=== PATIENT | female | born 1990 | race American Indian/Alaskan Native ===

== ENCOUNTER 2017-12-26 16:54 | Emergency (ER) | payer OTHER ==
[2017-12-26 16:59] VITALS: BP 141/83
[2017-12-26 17:31] LABS: Basophils # (Auto) 0.1 K/mm3 (0.0-0.1); Basophils % (Auto) 0.8 % (0.0-1.8); Eosinophils # (Auto) 0.1 K/mm3 (0.0-0.4); Eosinophils % (Auto) 0.9 % (0.0-4.3); Hematocrit 39.8 % (30.3-42.9); Hemoglobin 13.3 gm/dl (10.1-14.3); Lymphocytes # (Auto) 1.7 K/mm3 (1.2-5.4); Lymphocytes % (Auto) 21.1 % (13.4-35.0); Mean Corpuscular HGB Conc 34 % (30-34); Mean Corpuscular Hemoglobin 30 pg (28-32); Mean Corpuscular Volume 89 fl (79-97); Monocytes # (Auto) 0.7 K/mm3 (0.0-0.8); Monocytes % (Auto) 8.6 % (0.0-7.3); Platelet Count 334 K/mm3 (140-440); Red Blood Count 4.49 M/mm3 (3.65-5.03); Red Cell Distribution Width 15.8 % (13.2-15.2)
--- NOTE | 2017-12-26 20:18 | Ultrasound Report ---
FINAL REPORT PROCEDURE: US OB < = 14 WEEKS FETUS TECHNIQUE: Real-time transabdominal sonography of the uterus, placenta, amniotic fluid, adnexa, and fetus was performed with image documentation. Measurements were obtained to determine age/size. M-mode Doppler was used to document heartbeat. CPT 87831 HISTORY: 10wks, bleeding, cramping COMPARISON: No prior studies are available for comparison. FINDINGS: A single intrauterine gestation is identified. A small hypoechoic lesion measuring 1.9 x 1.2 x 2.0 centimeters is noted in the subchorionic region. A few small hypoechoic lesions measuring up to 2 centimeters are noted in the myometrium consistent with fibroids. CRL: 35mm, which corresponds to a gestational age of: 10weeks, 3 days. Yolk Sac: Normal. Embryonic Cardiac Activity: 173 beats per minute Gestational Sac: Normal. Right Ovary: 3.7 x 2.0 x 2.8 centimeters in size and appears normal Left Ovary: 2.4 x 1.3 x 2.7 centimeters in size and appears normal Estimated delivery date: 07/18/2018 IMPRESSION: 1. Single living intrauterine gestation at approximately 10 weeks and 3 days 2. EDC by US 07/18/2018. 3. Small hypoechoic lesion in the subchorionic region measuring 1.9 x 1.2 x 2.0 centimeters is consistent with subchorionic hemorrhage. 4. A few small hypoechoic lesions in the uterus are consistent with fibroids.
--- NOTE | 2017-12-26 20:18 | Ultrasound Report ---
FINAL REPORT PROCEDURE: US OB TRANSVAGINAL TECHNIQUE: Real-time transvaginal sonography of the uterus, placenta, amniotic fluid, adnexa, and fetus was performed with image documentation. Measurements were obtained to determine age/size. M-mode Doppler was used to document heartbeat. CPT 25738 HISTORY: 10wks, bleeding, cramping COMPARISON: No prior studies are available for comparison. FINDINGS: A single intrauterine gestation is identified. A small hypoechoic lesion measuring 1.9 x 1.2 x 2.0 centimeters is noted in the subchorionic region. A few small hypoechoic lesions measuring up to 2 centimeters are noted in the myometrium consistent with fibroids. CRL: 35mm, which corresponds to a gestational age of: 10weeks, 3 days. Yolk Sac: Normal. Embryonic Cardiac Activity: 173 beats per minute Gestational Sac: Normal. Right Ovary: 3.7 x 2.0 x 2.8 centimeters in size and appears normal Left Ovary: 2.4 x 1.3 x 2.7 centimeters in size and appears normal Estimated delivery date: 07/18/2018 IMPRESSION: 1. Single living intrauterine gestation at approximately 10 weeks and 3 days 2. EDC by US 07/18/2018. 3. Small hypoechoic lesion in the subchorionic region measuring 1.9 x 1.2 x 2.0 centimeters is consistent with subchorionic hemorrhage. 4. A few small hypoechoic lesions in the uterus are consistent with fibroids.
--- NOTE | 2017-12-26 21:37 | Emergency Department Report ---
ED HPI - General Chief complaint: Vaginal Bleeding Stated complaint: 10WEEKS PREG/SPOTTING/CRAMPING Time Seen by Provider: 12/26/17 21:05 Source: patient Mode of arrival: Ambulatory Limitations: No Limitations - History of Present Illness Initial comments: This is a 27-year-old female nontoxic, well nourished in appearance, no acute signs of distress presents to the ED with c/o of vaginal bleeding x1 day. Patient stated yesterday she noticed some spotting this morning. Patient also stated has mild pelvic cramping. Denies any radiation of pain. Patient denies any abdominal pain. Patient denies any vaginal discharge or foul odor. Patient denies any nausea, vomiting, chest pain, shortness of breathe, fever, chills, headache, stiff neck, numbness, tingling. Patient denies any urinary symptoms. Patient denies any allergies or PMH. -: days(s) (1) Location: pelvis Radiation: none Severity: mild Severity scale (0 -10): 3 Quality: cramping Consistency: constant Improves with: none Worsens with: none Associated symptoms: vaginal bleeding. denies: nausea/vomiting, vaginal discharge, abdominal pain, dysuria, headache, vision changes, malaise, dysparuenia, rash, seizure, shortness of breath, syncope, weakness Vaginal bleeding: light :: Yes Number of weeks : 10 Pre-nadya care: followed by OB - Related Data Allergies Allergy/AdvReac Type Severity Reaction Status Date / Time shellfish derived Allergy Anaphylaxis Verified 12/26/17 16:57 ED Review of Systems ROS: Stated complaint: 10WEEKS PREG/SPOTTING/CRAMPING Other details as noted in HPI Constitutional: denies: chills, fever Eyes: denies: eye pain, eye discharge, vision change ENT: denies: ear pain, throat pain Respiratory: denies: cough, shortness of breath, wheezing Cardiovascular: denies: chest pain, palpitations Endocrine: no symptoms reported Gastrointestinal: denies: abdominal pain, nausea, diarrhea Genitourinary: abnormal menses. denies: urgency, dysuria, discharge Musculoskeletal: denies: back pain, joint swelling, arthralgia Skin: denies: rash, lesions Neurological: denies: headache, weakness, paresthesias Psychiatric: denies: anxiety, depression Hematological/Lymphatic: denies: easy bleeding, easy bruising ED Past Medical Hx - Past Medical History Previous Medical History?: Yes Hx Asthma: Yes - Surgical History Past Surgical History?: No - Social History Smoking Status: Never Smoker Substance Use Type: None ED Physical Exam - General Limitations: No Limitations General appearance: alert, in no apparent distress - Head Head exam: Present: atraumatic, normocephalic - Eye Eye exam: Present: normal appearance Pupils: Present: normal accommodation - ENT ENT exam: Present: normal exam, mucous membranes moist - Neck Neck exam: Present: normal inspection, full ROM. Absent: tenderness, meningismus, lymphadenopathy - Respiratory Respiratory exam: Present: normal lung sounds bilaterally. Absent: respiratory distress, wheezes, rales, rhonchi, stridor, chest wall tenderness, accessory muscle use, decreased breath sounds, prolonged expiratory - Cardiovascular Cardiovascular Exam: Present: regular rate, normal rhythm, normal heart sounds. Absent: bradycardia, tachycardia, irregular rhythm, systolic murmur, diastolic murmur, rubs, gallop - GI/Abdominal GI/Abdominal exam: Present: soft, normal bowel sounds. Absent: distended, tenderness, guarding, rebound, rigid, diminished bowel sounds - Extremities Exam Extremities exam: Present: normal inspection, full ROM, normal capillary refill. Absent: tenderness - Back Exam Back exam: Present: normal inspection, full ROM. Absent: tenderness, CVA tenderness (R), CVA tenderness (L), muscle spasm, paraspinal tenderness, vertebral tenderness, rash noted - Neurological Exam Neurological exam: Present: alert, oriented X3, normal gait - Psychiatric Psychiatric exam: Present: normal affect, normal mood - Skin Skin exam: Present: warm, dry, intact, normal color. Absent: rash ED Course Vital Signs 12/26/17 16:57 Temperature 98.7 F Pulse Rate 97 H Respiratory 16 Rate Blood Pressure 141/83 O2 Sat by Pulse 99 Oximetry - Reevaluation(s) Reevaluation #1: 12/26/17 21:34 Patient is speaking in full sentences with no signs of distress noted. ED Medical Decision Making - Lab Data Result diagrams: 12/26/17 17:13 - Medical Decision Making This is a 27-year-old female presents with threatened miscarriage. Patient is stable and was examined by me. Normal abdominal exam. US OB obtained and dictated by the radiologist. Quantative serum test obtained. Patient notified of the US report with no questions noted by the patient. RH factor positive. Labs within normal limits. Patient was referred to Follow-up with a COILED T[facility]ING OPERATOR in 3 -5 days or if symptoms worsen and continue return to emergency room as soon as possible. At time of discharge, the patient does not seem toxic or ill in appearance. No acute signs of distress noted. Patient agrees to discharge treatment plan of care. No further questions noted by the patient. Critical care attestation.: If time is entered above; I have spent that time in minutes in the direct care of this critically ill patient, excluding procedure time. ED Disposition Clinical Impression: Threatened miscarriage Uterine fibroid Qualifiers: Uterine leiomyoma location: unspecified location Qualified Code(s): D25.9 - Leiomyoma of uterus, unspecified Disposition: TO HOME OR SELFCARE Is pt being admited?: No Does the pt Need Aspirin: No Condition: Stable Instructions: Threatened Miscarriage (ED), Uterine Fibroids (ED) Additional Instructions: Follow-up with a COILED T[facility]ING OPERATOR doctor in 3-5 days or if symptoms worsen and continue return to emergency room as soon as possible. Referrals: PRIMARY CAREMD [Primary Care Provider] - 3-5 Days DARWIN LUBIN MD [Staff Physician] - 3-5 Days [facility] [Provider Group] - 3-5 Days Forms: Work/School Release Form(ED)
== END 2017-12-26 21:50 | disposition home or self-care (01) ==
LOC: ED 16:54
DX: O20.0 Threatened abortion (principal); Z3A.10 10 weeks gestation of pregnancy; O34.11 Maternal care for benign tumor of corpus uteri, first trimester
CPT/HCPCS: 36415; 76801; 76817; 84702; 85025; 86850; 86900; 86901

== ENCOUNTER 2019-12-25 15:41 | Emergency (ER) | payer OTHER ==
[2019-12-25 15:59] VITALS: BP 138/94
[2019-12-25 16:39] LABS: Alanine Aminotransferase 10 units/L (7-56); Albumin 3.6 g/dL (3.9-5); Blood Urea Nitrogen 9 mg/dL (7-17); Calcium 9.5 mg/dL (8.4-10.2); Hemolysis Index 4
[2019-12-25 16:42] LABS: BUN/Creatinine Ratio 15
== END 2019-12-25 16:55 | disposition left against medical advice (07) ==
LOC: ED 15:41
DX: O21.8 Other vomiting complicating pregnancy (principal); Z3A.16 16 weeks gestation of pregnancy; Z53.21 Procedure and treatment not carried out due to patient leaving prior to being seen by health care provider
CPT/HCPCS: 36415; 80053

== ENCOUNTER 2020-02-15 18:49 | Outpatient (CLI) | payer OTHER ==
[2020-02-15 19:21] VITALS: BP 139/88
[2020-02-15] MEDS ORDERED: LACTATED RINGERS 1,000 ML IV ONE (20:09)
[2020-02-15] MEDS ORDERED: ACETAMINOPHEN 325 MG TAB PO ONE (21:10)
== END 2020-02-15 21:34 | disposition home or self-care (01) ==
LOC: TRG 18:49 → APU 18:50 → TRG 21:34
PROVIDERS: ATTEND Obstetrics & Gynecology
DX: O36.8120 Decreased fetal movements, second trimester, not applicable or unspecified (principal); O16.2 Unspecified maternal hypertension, second trimester; J45.909 Unspecified asthma, uncomplicated; Z3A.24 24 weeks gestation of pregnancy
CPT/HCPCS: 59025; 96360; J7120

== ENCOUNTER 2020-03-02 17:14 | Outpatient (CLI) | payer OTHER ==
[2020-03-02] MEDS ORDERED: LACTATED RINGERS 500 ML IV ONE (17:40)
[2020-03-02 18:07] LABS: Bilirubin,Urine NEG (Negative); Blood,Urine NEG (Negative); Color,Urine Straw (Yellow); Mucus,Urine FEW /HPF; Protein,Urine <15 mg/dL mg/dL (Negative); Urobilinogen,Urine < 2.0 mg/dL (<2.0); WBC,Urine < 1.0 /HPF (0.0-6.0)
[2020-03-02 19:20] LABS: Alanine Aminotransferase 7 units/L (7-56); Uric Acid 3.2 mg/dL (3.5-7.6)
[2020-03-02 19:29] LABS: Hematocrit 36.8 % (30.3-42.9); Hemoglobin 12.5 gm/dl (10.1-14.3); Mean Corpuscular HGB Conc 34 % (30-34); Mean Corpuscular Volume 92 fl (79-97); Platelet Count 305 K/mm3 (140-440)
[2020-03-02 20:13] VITALS: BP 118/71
== END 2020-03-02 20:45 | disposition home or self-care (01) ==
LOC: TRG 17:14 → APU 17:16 → TRG 20:45
PROVIDERS: ATTEND Obstetrics & Gynecology
DX: O13.2 Gestational [pregnancy-induced] hypertension without significant proteinuria, second trimester (principal); Z3A.26 26 weeks gestation of pregnancy
CPT/HCPCS: 36415; 59025; 81001; 82565; 83615; 84450; 84460; 84550; 85027

== ENCOUNTER 2020-05-04 16:13 | Outpatient (CLI) | payer OTHER ==
[2020-05-04] MEDS ORDERED: LACTATED RINGERS 1,000 ML IV SCH (18:00)
[2020-05-04 18:17] LABS: Bilirubin,Urine NEG (Negative); Blood,Urine NEG (Negative); Color,Urine Yellow (Yellow); Mucus,Urine 1+ /HPF; Protein,Urine <15 mg/dL mg/dL (Negative); Urobilinogen,Urine < 2.0 mg/dL (<2.0)
[2020-05-04 18:41] LABS: Hematocrit 34.7 % (30.3-42.9); Hemoglobin 11.3 gm/dl (10.1-14.3); Mean Corpuscular HGB Conc 33 % (30-34); Mean Corpuscular Volume 90 fl (79-97); Platelet Count 268 K/mm3 (140-440); Red Blood Count 3.85 M/mm3 (3.65-5.03); Red Cell Distribution Width 15.2 % (13.2-15.2)
[2020-05-04 19:02] LABS: Alanine Aminotransferase 11 units/L (7-56); Uric Acid 3.3 mg/dL (3.5-7.6)
[2020-05-04 19:41] VITALS: BP 125/78
== END 2020-05-04 20:03 | disposition home or self-care (01) ==
LOC: TRG 16:13 → APU 16:16 → TRG 20:03
PROVIDERS: ATTEND Obstetrics & Gynecology
DX: O16.3 Unspecified maternal hypertension, third trimester (principal); Z3A.38 38 weeks gestation of pregnancy
CPT/HCPCS: 36415; 59025; 81001; 82565; 83615; 84450; 84460; 84550; 85027

== ENCOUNTER 2020-05-11 20:51 | Outpatient (CLI) | payer OTHER ==
[2020-05-11] MEDS ORDERED: LACTATED RINGERS 1,000 ML IV ONE (21:42)
[2020-05-11 22:38] LABS: Bacteria,Urine 1+ /HPF (Negative); Mucus,Urine 2+ /HPF; RBC,Urine < 1.0 /HPF (0.0-6.0)
[2020-05-11 22:39] LABS: Bilirubin,Urine NEG (Negative); Blood,Urine NEG (Negative); Color,Urine Yellow (Yellow); Protein,Urine <15 mg/dL mg/dL (Negative); Urobilinogen,Urine < 2.0 mg/dL (<2.0)
[2020-05-11 23:14] LABS: Hematocrit 35.5 % (30.3-42.9); Hemoglobin 11.4 gm/dl (10.1-14.3); Mean Corpuscular HGB Conc 32 % (30-34); Mean Corpuscular Volume 91 fl (79-97); Platelet Count 251 K/mm3 (140-440); Red Cell Distribution Width 15.3 % (13.2-15.2)
--- NOTE | 2020-05-12 00:04 | Ultrasound Report ---
LIMITED OB ULTRASOUND INDICATION: High blood pressure, evaluate amniotic fluid index FINDINGS: Intrauterine in a cephalic presentation. Amniotic fluid index is 6.9 cm which is borderline decreased. Normal is considered between 7 and 24 cm. heart rate is 140 bpm. IMPRESSION: Amniotic fluid index is 6.9 cm. BIOPHYSICAL PROFILE FINDINGS: breathing movement: 2/2 movement: 2/2 posture and tone: 2/2 Qualitative amniotic fluid volume: 2/2 IMPRESSION: Total score for biophysical profile is 8/8 heart rate is 140 bpm Signer Name: Zia Liao MD Signed: 05/12/2020 12:00 AM Workstation Name: [id number]
[2020-05-12 01:27] LABS: Alanine Aminotransferase 8 units/L (7-56)
[2020-05-12 01:42] VITALS: BP 126/72
[2020-05-12 03:31] LABS: Uric Acid 3.2 mg/dL (3.5-7.6)
== END 2020-05-12 02:03 | disposition home or self-care (01) ==
LOC: TRG 20:51 → APU 20:52 → TRG 05-12 02:03
PROVIDERS: ATTEND Obstetrics & Gynecology
DX: O13.3 Gestational [pregnancy-induced] hypertension without significant proteinuria, third trimester (principal)
CPT/HCPCS: 36415; 59025; 76815; 76819; 81001; 82565; 83615; 84450; 84460; 84550; 85027

== ENCOUNTER 2020-05-15 19:37 | Observation (INO) | payer OTHER ==
[2020-05-15] MEDS ORDERED: ACETAMINOPHEN 325 MG TAB PO ONE (20:12)
[2020-05-15 20:42] LABS: Bilirubin,Urine NEG (Negative); Blood,Urine NEG (Negative); Color,Urine Yellow (Yellow); Mucus,Urine 3+ /HPF; Protein,Urine <15 mg/dL mg/dL (Negative); Urobilinogen,Urine < 2.0 mg/dL (<2.0)
[2020-05-15 20:43] LABS: Basophils % (Auto) 0.5 % (0.0-1.8); Eosinophils % (Auto) 0.5 % (0.0-4.3); Hematocrit 35.7 % (30.3-42.9); Hemoglobin 11.7 gm/dl (10.1-14.3); Lymphocytes # (Auto) 2.2 K/mm3 (1.2-5.4); Mean Corpuscular HGB Conc 33 % (30-34); Mean Corpuscular Volume 91 fl (79-97); Monocytes # (Auto) 0.8 K/mm3 (0.0-0.8); Monocytes % (Auto) 8.5 % (0.0-7.3); Platelet Count 256 K/mm3 (140-440); Red Blood Count 3.93 M/mm3 (3.65-5.03); Red Cell Distribution Width 15.7 % (13.2-15.2)
[2020-05-15 21:16] LABS: Alanine Aminotransferase 9 units/L (7-56); Albumin 3.2 g/dL (3.9-5); Blood Urea Nitrogen 7 mg/dL (7-17); Calcium 9.5 mg/dL (8.4-10.2); Hemolysis Index 21; Uric Acid 4.3 mg/dL (3.5-7.6)
[2020-05-15 21:17] LABS: BUN/Creatinine Ratio 12
--- NOTE | 2020-05-15 22:36 | Ultrasound Report ---
US OB limited, US OB BPP wo non-stress INDICATION / CLINICAL INFORMATION: KAPIL, check placenta. COMPARISON: 05/11/2020 FINDINGS: The placenta is anterior with normal blood flow. No evidence of placental abruption. KAPIL is 11.7. A s ainsley fetus is seen in cephalic presentation. heart rate is 177. BPP is 8/8 IMPRESSION: Single live fetus in cephalic presentation with heart rate of 177. BPP is 8/8 Signer Name: Martin Wheeler MD FACR Signed: 05/15/2020 10:31 PM Workstation Name: [id number]
[2020-05-15] MEDS ORDERED: ONDANSETRON 4 MG/2 ML INJ IV PRN (22:46)
--- NOTE | 2020-05-15 22:46 | History and Physical Report ---
History of Present Illness Date of examination: 05/15/20 Date of admission: 05/15/2020 Chief complaint: Headache, elevated blood pressure, nausea History of present illness: 30 year old female presents to L&D complaining of elevated blood pressure at home, headache and nausea. Patient reports decreased movement today. Patient denies leaking of fluid or vaginal bleeding. Patient denies contractions. Patient receives care at [facility]. records are not available. EDC 06/05/2020 per patient report. Patient reports PIH vs. preeclampsia with this and states she takes Labetalol at home. Patient denies any other problems during the . Past medical history includes obesity, asthma, and history of PIH with previous . History of LTCS 22 months ago. Past History Past Medical History: other (obesity, asthma, history of PIH with previous ) Past Surgical History: section [facility] History: denies: chlamydia, gonorrhea, hepatitis B, hepatitis C, herpes, HIV, syphilis, trichomonas Family/Genetic History: hypertension Social history: lives with family, full code. denies: smoking, alcohol abuse, prescription drug abuse, IV drug use - Obstetrical History Expected Date of Delivery: 06/05/20 Actual Gestation: 37 Week(s) 0 Day(s) : 3 Para: 1 Hx # Term Pregnancies: 1 Number of Pregnancies: 0 Spontaneous Abortions: 1 Induced : 0 Number of Living Children: 1 Medications and Allergies Allergies Allergy/AdvReac Type Severity Reaction Status Date / Time shellfish derived Allergy Anaphylaxis Verified 12/26/17 16:57 Active Meds: Active Medications Lactated Ringer's (Lactated Ringers) 1,000 mls @ 125 mls/hr IV DIRECT FRANCIE Multivitamins/Iron/Calcium ( Xlt58-Kl Fumarate-Folic Acid Vit Tab) 1 each PO QDAY FRANCIE Review of Systems All systems: negative (headache, nausea) - Vital Signs Vital signs: Vital Signs Pulse BP Pulse Ox 97 H 132/84 100 05/15/20 20:03 05/15/20 20:03 05/15/20 20:03 Temp Pulse Resp BP Pulse Ox 98.9 F 91 H 19 141/80 98 05/15/20 20:04 05/15/20 22:38 05/15/20 20:04 05/15/20 22:34 05/15/20 22:38 BPP 8/8; KAPIL 11.7 cm. No evidence of placental abruption on US. - Physical Exam Abdomen: Positive: normal appearance, soft. Negative: distention, tenderness, guarding, rigidity Uterus: Positive: enlarged. Negative: tender Extremities: Positive: normal. Negative: tenderness, edema - Obstetrical FHR: category 1 Uterine Contraction Monitor Mode: External Uterine Contraction Pattern: Absent Results Result Diagrams: 05/15/20 20:28 05/15/20 20:28 Abnormal lab results 05/15/20 05/15/20 Range/Units 20:28 20: RDW 15.7 H (13.2-15.2) % [place] % (Auto) 8.5 H (0.0-7.3) % Sodium 134 L (137-145) mmol/L Carbon Dioxide 20 L (22-30) mmol/L Alkaline Phosphatase 156 H (35-129) units/L Lactate Dehydrogenase 214 H (91-180) units/L Albumin 3.2 L (3.9-5) g/dL All other labs normal. Assessment and Plan A: at 37 weeks gestation. Elevated blood pressures (PIH vs. preeclampsia). History of PIH with previous . History of previous section. No records available. P: Admit. Continuous EFM. Serial BPs. 24 hour urine for total protein, creatinine, and creatinine clearance. Tylenol for headache and Zofran for nausea. NPO for now. Request records. Consulted with Dr. Damon re: this patient; Dr. Damon states he is in agreement with POC. No new orders received from Dr. Damon.
[2020-05-16] MEDS: LACTATED RINGERS 1,000 ML IV SCH ×3 (07:14→21:52)
[2020-05-16] MEDS ORDERED: ACETAMINOPHEN 325 MG TAB PO PRN (09:01)
[2020-05-16] MEDS ORDERED: PRENATAL VIT27-FE FUMARATE-FOLIC ACID VIT TAB PO SCH (10:00)
--- NOTE | 2020-05-16 10:22 | Progress Note ---
Assessment and Plan A: at 37 weeks, 1 day gestation. PIH vs. preeclampsia. Previous . P: Continue collecting 24 hour urine for total protein. Continue monitoring BP. Continuous EFM. Subjective - Subjective Date of service: 05/16/20 Principal diagnosis: at 37 weeks, 1 day gestation; PIH vs. Preeclampsia Interval history: 24 hour urine for total protein is being collected. Patient reports mild headache this morning. BPs have been stable overnight. Patient reports active movement. Denies LOF or VB. Reports irregular mild contractions. Objective - Vital Signs Vital Signs: Vital Signs - 12hr 05/15/20 05/15/20 05/15/20 22:23 22:28 22:33 Temperature Pulse Rate 97 H 91 H 93 H Respiratory Rate Blood Pressure Blood Pressure [Right] O2 Sat by Pulse 99 99 98 Oximetry 05/15/20 05/15/20 05/15/20 22:34 22:38 23:08 Temperature 98.7 F Pulse Rate 86 91 H 87 Respiratory 18 Rate Blood Pressure 141/80 Blood Pressure 131/75 [Right] O2 Sat by Pulse 98 98 Oximetry 05/15/20 05/15/20 05/15/20 23:14 23:19 23:24 Temperature Pulse Rate 84 83 79 Respiratory Rate Blood Pressure Blood Pressure [Right] O2 Sat by Pulse 99 98 98 Oximetry 05/15/20 05/15/20 05/15/20 23:29 23:34 23:39 Temperature Pulse Rate 98 H 93 H 86 Respiratory Rate Blood Pressure Blood Pressure [Right] O2 Sat by Pulse 98 97 98 Oximetry 05/15/20 05/15/20 05/15/20 23:44 23:49 23:54 Temperature Pulse Rate 88 83 88 Respiratory Rate Blood Pressure Blood Pressure [Right] O2 Sat by Pulse 99 98 99 Oximetry 05/15/20 05/16/20 05/16/20 23:59 00:04 00:09 Temperature Pulse Rate 89 84 91 H Respiratory Rate Blood Pressure Blood Pressure [Right] O2 Sat by Pulse 97 100 100 Oximetry 05/16/20 05/16/20 05/16/20 00:14 00:19 00:52 Temperature Pulse Rate 90 85 94 H Respiratory Rate Blood Pressure Blood Pressure [Right] O2 Sat by Pulse 98 98 97 Oximetry 05/16/20 05/16/20 05/16/20 00:53 00:57 01:00 Temperature Pulse Rate 93 H 95 H 92 H Respiratory Rate Blood Pressure 135/86 Blood Pressure [Right] O2 Sat by Pulse 89 99 Oximetry 05/16/20 05/16/20 05/16/20 01:02 01:07 01:12 Temperature Pulse Rate 79 95 H 88 Respiratory Rate Blood Pressure Blood Pressure [Right] O2 Sat by Pulse 100 98 99 Oximetry 05/16/20 05/16/20 05/16/20 01:17 01:22 01:27 Temperature Pulse Rate 88 87 87 Respiratory Rate Blood Pressure Blood Pressure [Right] O2 Sat by Pulse 99 98 98 Oximetry 05/16/20 05/16/20 05/16/20 01:32 01:37 01:42 Temperature Pulse Rate 83 92 H 93 H Respiratory Rate Blood Pressure Blood Pressure [Right] O2 Sat by Pulse 97 98 98 Oximetry 05/16/20 05/16/20 05/16/20 01:45 01:47 02:02 Temperature Pulse Rate 105 H 109 H 107 H Respiratory Rate Blood Pressure 130/62 Blood Pressure [Right] O2 Sat by Pulse 100 100 Oximetry 05/16/20 05/16/20 05/16/20 02:07 02:12 02:17 Temperature Pulse Rate 95 H 81 93 H Respiratory Rate Blood Pressure Blood Pressure [Right] O2 Sat by Pulse 98 99 97 Oximetry 05/16/20 05/16/20 05/16/20 02:22 02:27 02:31 Temperature Pulse Rate 83 90 82 Respiratory Rate Blood Pressure 124/66 Blood Pressure [Right] O2 Sat by Pulse 98 97 Oximetry 05/16/20 05/16/20 05/16/20 02:32 02:37 02:43 Temperature Pulse Rate 97 H 85 Respiratory Rate Blood Pressure Blood Pressure [Right] O2 Sat by Pulse 100 100 95 Oximetry 05/16/20 05/16/20 05/16/20 02:48 02:53 02:58 Temperature Pulse Rate 94 H 93 H 99 H Respiratory Rate Blood Pressure Blood Pressure [Right] O2 Sat by Pulse 99 99 97 Oximetry 05/16/20 05/16/20 05/16/20 03:03 03:08 03:13 Temperature Pulse Rate 98 H 92 H 102 H Respiratory Rate Blood Pressure Blood Pressure [Right] O2 Sat by Pulse 97 96 97 Oximetry 05/16/20 05/16/20 05/16/20 03:18 03:23 03:28 Temperature Pulse Rate 96 H 85 93 H Respiratory Rate Blood Pressure 114/67 Blood Pressure [Right] O2 Sat by Pulse 96 98 98 Oximetry 05/16/20 05/16/20 05/16/20 03:33 03:38 03:43 Temperature Pulse Rate 94 H 96 H 96 H Respiratory Rate Blood Pressure Blood Pressure [Right] O2 Sat by Pulse 98 98 98 Oximetry 05/16/20 05/16/20 05/16/20 03:48 03:53 03:58 Temperature Pulse Rate 98 H 95 H 93 H Respiratory Rate Blood Pressure Blood Pressure [Right] O2 Sat by Pulse 97 98 98 Oximetry 05/16/20 05/16/20 05/16/20 04:00 04:03 04:08 Temperature Pulse Rate 100 H 92 H 91 H Respiratory Rate Blood Pressure 109/65 Blood Pressure [Right] O2 Sat by Pulse 98 98 Oximetry 05/16/20 05/16/20 05/16/20 04:13 04:18 04:23 Temperature Pulse Rate 93 H 92 H 88 Respiratory Rate Blood Pressure Blood Pressure [Right] O2 Sat by Pulse 98 98 97 Oximetry 05/16/20 05/16/20 05/16/20 04:28 04:33 04:38 Temperature Pulse Rate 90 86 80 Respiratory Rate Blood Pressure Blood Pressure [Right] O2 Sat by Pulse 97 98 99 Oximetry 05/16/20 05/16/20 05/16/20 04:43 04:46 04:48 Temperature Pulse Rate 79 86 90 Respiratory Rate Blood Pressure 123/74 Blood Pressure [Right] O2 Sat by Pulse 99 99 Oximetry 05/16/20 05/16/20 05/16/20 04:53 04:58 05:03 Temperature Pulse Rate 97 H 93 H 95 H Respiratory Rate Blood Pressure Blood Pressure [Right] O2 Sat by Pulse 99 99 99 Oximetry 05/16/20 05/16/20 05/16/20 05:08 05:13 05:18 Temperature Pulse Rate 86 90 83 Respiratory Rate Blood Pressure Blood Pressure [Right] O2 Sat by Pulse 99 99 99 Oximetry 05/16/20 05/16/20 05/16/20 05:23 05:28 05:30 Temperature Pulse Rate 94 H 86 94 H Respiratory Rate Blood Pressure 127/79 Blood Pressure [Right] O2 Sat by Pulse 99 98 Oximetry 05/16/20 05/16/20 05/16/20 05:33 05:38 05:43 Temperature Pulse Rate 89 89 93 H Respiratory Rate Blood Pressure Blood Pressure [Right] O2 Sat by Pulse 99 99 98 Oximetry 05/16/20 05/16/20 05/16/20 05:48 05:49 05:53 Temperature Pulse Rate 98 H 103 H 107 H Respiratory Rate Blood Pressure Blood Pressure [Right] O2 Sat by Pulse 98 93 96 Oximetry 05/16/20 05/16/20 05/16/20 05:58 06:03 06:08 Temperature Pulse Rate 99 H 96 H 93 H Respiratory Rate Blood Pressure Blood Pressure [Right] O2 Sat by Pulse 98 97 97 Oximetry 05/16/20 05/16/20 05/16/20 06:13 06:15 06:18 Temperature Pulse Rate 95 H 93 H 95 H Respiratory Rate Blood Pressure 106/56 Blood Pressure [Right] O2 Sat by Pulse 97 98 Oximetry 05/16/20 05/16/20 05/16/20 06:23 06:28 06:33 Temperature Pulse Rate 97 H 94 H 94 H Respiratory Rate Blood Pressure Blood Pressure [Right] O2 Sat by Pulse 97 98 98 Oximetry 05/16/20 05/16/20 05/16/20 06:38 06:43 06:48 Temperature Pulse Rate 95 H 95 H 82 Respiratory Rate Blood Pressure Blood Pressure [Right] O2 Sat by Pulse 97 98 98 Oximetry 05/16/20 05/16/20 05/16/20 06:53 06:57 06:58 Temperature 98.8 F Pulse Rate 91 H 101 H 93 H Respiratory 16 Rate Blood Pressure 114/61 Blood Pressure 114/61 [Right] O2 Sat by Pulse 96 99 99 Oximetry 05/16/20 05/16/20 05/16/20 07:03 07:04 07:08 Temperature Pulse Rate 97 H 103 H 99 H Respiratory Rate Blood Pressure Blood Pressure [Right] O2 Sat by Pulse 97 94 98 Oximetry 05/16/20 05/16/20 05/16/20 07:13 07:18 07:23 Temperature Pulse Rate 95 H 96 H 94 H Respiratory Rate Blood Pressure Blood Pressure [Right] O2 Sat by Pulse 99 98 98 Oximetry 05/16/20 05/16/20 05/16/20 07:27 07:28 07:33 Temperature Pulse Rate 92 H 89 78 Respiratory Rate Blood Pressure 122/62 Blood Pressure [Right] O2 Sat by Pulse 100 90 Oximetry 05/16/20 05/16/20 05/16/20 07:34 07:39 07:44 Temperature Pulse Rate 94 H 92 H 86 Respiratory Rate Blood Pressure Blood Pressure [Right] O2 Sat by Pulse 99 98 99 Oximetry 05/16/20 05/16/20 05/16/20 07:49 07:54 07:59 Temperature Pulse Rate 91 H 92 H 93 H Respiratory Rate Blood Pressure Blood Pressure [Right] O2 Sat by Pulse 99 98 98 Oximetry 05/16/20 05/16/20 05/16/20 08:04 08:09 08:14 Temperature Pulse Rate 89 90 89 Respiratory Rate Blood Pressure Blood Pressure [Right] O2 Sat by Pulse 99 99 99 Oximetry 05/16/20 05/16/20 05/16/20 08:19 08:24 08:29 Temperature Pulse Rate 94 H 95 H 88 Respiratory Rate Blood Pressure Blood Pressure [Right] O2 Sat by Pulse 98 98 92 Oximetry 05/16/20 05/16/20 05/16/20 08:34 08:39 08:44 Temperature Pulse Rate 103 H 89 92 H Respiratory Rate Blood Pressure Blood Pressure [Right] O2 Sat by Pulse 98 98 98 Oximetry 05/16/20 05/16/20 05/16/20 08:49 08:50 08:54 Temperature Pulse Rate 108 H 93 H 92 H Respiratory Rate Blood Pressure 126/66 Blood Pressure [Right] O2 Sat by Pulse 98 98 Oximetry 05/16/20 05/16/20 05/16/20 08:57 08:59 09:04 Temperature Pulse Rate 82 89 87 Respiratory Rate Blood Pressure 121/61 Blood Pressure [Right] O2 Sat by Pulse 98 98 Oximetry 05/16/20 05/16/20 05/16/20 09:09 09:14 09:19 Temperature Pulse Rate 101 H 93 H 89 Respiratory Rate Blood Pressure Blood Pressure [Right] O2 Sat by Pulse 98 97 97 Oximetry 05/16/20 05/16/20 05/16/20 09:24 09:28 09:29 Temperature Pulse Rate 91 H 88 89 Respiratory Rate Blood Pressure 108/70 Blood Pressure [Right] O2 Sat by Pulse 98 97 Oximetry 05/16/20 05/16/20 05/16/20 09:34 09:39 09:44 Temperature Pulse Rate 91 H 92 H 93 H Respiratory Rate Blood Pressure Blood Pressure [Right] O2 Sat by Pulse 98 99 98 Oximetry 05/16/20 05/16/20 05/16/20 09:49 09:54 09:57 Temperature Pulse Rate 96 H 98 H 99 H Respiratory Rate Blood Pressure 112/59 Blood Pressure [Right] O2 Sat by Pulse 99 99 Oximetry 05/16/20 05/16/20 05/16/20 09:59 10:04 10:09 Temperature Pulse Rate 86 84 83 Respiratory Rate Blood Pressure Blood Pressure [Right] O2 Sat by Pulse 99 99 99 Oximetry 05/16/20 10:14 Temperature Pulse Rate 82 Respiratory Rate Blood Pressure Blood Pressure [Right] O2 Sat by Pulse 99 Oximetry - Exam Abdomen: Present: normal appearance, soft. Absent: distention, tenderness, guarding, rigidity Uterus: Present: normal, fundal height above umbilicus. Absent: tenderness FHR: category 1 Uterine Contraction Monitor Mode: External Cervical Dilatation: 1 Cervical Effacement Percentage: 60 station: -2 Uterine Contraction Pattern: Irregular Uterine Contraction Intensity: Mild Extremities: normal - Labs Labs: Abnormal Labs 05/15/20 05/15/20 20:28 20:28 RDW 15.7 H Rabun % (Auto) 8.5 H Sodium 134 L Carbon Dioxide 20 L Alkaline Phosphatase 156 H Lactate Dehydrogenase 214 H Albumin 3.2 L Laboratory Results - last 24 hr 05/15/20 05/15/20 05/15/20 00:57 20:19 20:28 WBC 9.0 RBC 3.93 Hgb 11.7 Hct 35.7 MCV 91 MCH 30 MCHC 33 RDW 15.7 H Plt Count 256 Lymph % (Auto) 24.0 Rabun % (Auto) 8.5 H Eos % (Auto) 0.5 Baso % (Auto) 0.5 Lymph # (Auto) 2.2 Rabun # (Auto) 0.8 Eos # (Auto) 0.0 Baso # (Auto) 0.0 Seg Neutrophils % 66.5 Seg Neutrophils # 6.0 Sodium Potassium Chloride Carbon Dioxide Anion Gap BUN Creatinine Estimated GFR BUN/Creatinine Ratio Glucose Uric Acid Calcium Total Bilirubin AST ALT Alkaline Phosphatase Lactate Dehydrogenase Total Protein Albumin Albumin/Globulin Ratio Urine Color Yellow Urine Turbidity Clear Urine pH 5.0 Ur Specific Crosby 1.019 Urine Protein <15 mg/dl Urine Glucose (UA) Neg Urine Ketones Tr Urine Blood Neg Urine Nitrite Neg Urine Bilirubin Neg Urine Urobilinogen < 2.0 Ur Leukocyte Esterase Neg Urine WBC (Auto) 1.0 Urine RBC (Auto) 1.0 U Epithel Cells (Auto) 1.0 Urine Mucus 3+ Blood Type O POSITIVE Antibody Screen Negative 05/15/20 20:28 WBC RBC Hgb Hct MCV MCH MCHC RDW Plt Count Lymph % (Auto) Rabun % (Auto) Eos % (Auto) Baso % (Auto) Lymph # (Auto) Rabun # (Auto) Eos # (Auto) Baso # (Auto) Seg Neutrophils % Seg Neutrophils # Sodium 134 L Potassium 4.1 Chloride 104.0 Carbon Dioxide 20 L Anion Gap 14 BUN 7 Creatinine 0.6 Estimated GFR > 60 BUN/Creatinine Ratio 12 Glucose 71 Uric Acid 4.3 Calcium 9.5 Total Bilirubin 0.20 AST 15 ALT 9 Alkaline Phosphatase 156 H Lactate Dehydrogenase 214 H Total Protein 7.2 Albumin 3.2 L Albumin/Globulin Ratio 0.8 Urine Color Urine Turbidity Urine pH Ur Specific Crosby Urine Protein Urine Glucose (UA) Urine Ketones Urine Blood Urine Nitrite Urine Bilirubin Urine Urobilinogen Ur Leukocyte Esterase Urine WBC (Auto) Urine RBC (Auto) U Epithel Cells (Auto) Urine Mucus Blood Type Antibody Screen
[2020-05-16] MEDS ORDERED: BUTALB/ACETAMINOPHEN/CAFFEINE TAB PO PRN (15:12)
--- NOTE | 2020-05-16 16:43 | Event Note ---
Date: 05/16/20 Brief Note Visited with patient. Patient without mild BROWN, previously improved with tylenol. Denies vision changes or RUQ pain. BPs <140/90, except for 3 occasions at admission. 24H TP currently being completed. [facility] labs wnl. Patient desiring TOLAC if indicated, but agreeable to repeat c/s if possible. --Continue home labetolol 100mg BID, initiated on 05/13/20 --Fiorect prn BROWN --24H TP pending --If <300, can discharge home with outpatient followup if otherwise asymptomatic --Patient understands plan of care can change if indicated
[2020-05-16] MEDS ORDERED: diphenhydrAMINE 50 MG/ML VIAL IV ONE (18:25)
[2020-05-16 22:55] LABS: Creatinine,Urine 136.9 mg/dL (0.1-20.0)
[2020-05-17] MEDS: LACTATED RINGERS 1,000 ML IV SCH (07:15)
[2020-05-17 07:58] VITALS: BP 119/64
[2020-05-17] MEDS ORDERED: BICITRA ORAL LIQD 30ML ONE (22:28)
== END 2020-05-17 09:14 | disposition home or self-care (01) ==
LOC: TRG 19:37 → APU 19:39 → TRG 22:37 → LD 22:37
PROVIDERS: ADMIT Obstetrics & Gynecology; ATTEND Obstetrics & Gynecology
DX: O13.3 Gestational [pregnancy-induced] hypertension without significant proteinuria, third trimester (principal); Z20.828 Contact with and (suspected) exposure to other viral communicable diseases; O99.513 Diseases of the respiratory system complicating pregnancy, third trimester; J45.909 Unspecified asthma, uncomplicated; Z3A.37 37 weeks gestation of pregnancy; Z98.891 History of uterine scar from previous surgery; Z21 Asymptomatic human immunodeficiency virus [HIV] infection status; Z86.19 Personal history of other infectious and parasitic diseases
CPT/HCPCS: 36415; 76815; 76819; 80053; 81001; 82565; 82570; 82575; 83615; 84156; 84550; 85025; 86850; 86900; 86901; 96374; G0378; J1200; J7120; U0003

== ENCOUNTER 2020-05-17 17:19 | Inpatient (IN) | payer OTHER ==
[2020-05-17] MEDS ORDERED: METOCLOPRAMIDE 10 MG/2 ML INJ IV ONE (17:54)
[2020-05-17] MEDS ORDERED: FAMOTIDINE 20 MG/2 ML INJ IV ONE (17:54)
[2020-05-17] MEDS ORDERED: BICITRA ORAL LIQD 30ML PO ONE (17:54)
[2020-05-17] MEDS ORDERED: LACTATED RINGERS 1,000 ML IV SCH (18:00)
[2020-05-17] MEDS ORDERED: OXYTOCIN DRIP 30 UNITS/500 ML BAG IV SCH (18:00)
[2020-05-17] MEDS ORDERED: ceFAZolin/Water 2 GM/20 ML 2 GM/20 ML SYRINGE IV NR (18:00)
[2020-05-17 18:33] LABS: Basophils % (Auto) 0.3 % (0.0-1.8); Eosinophils % (Auto) 0.5 % (0.0-4.3); Hematocrit 33.9 % (30.3-42.9); Hemoglobin 11.3 gm/dl (10.1-14.3); Lymphocytes % (Auto) 23.3 % (13.4-35.0); Mean Corpuscular HGB Conc 33 % (30-34); Mean Corpuscular Volume 89 fl (79-97); Monocytes # (Auto) 0.7 K/mm3 (0.0-0.8); Monocytes % (Auto) 8.3 % (0.0-7.3); Platelet Count 254 K/mm3 (140-440); Red Cell Distribution Width 15.5 % (13.2-15.2)
[2020-05-17 18:47] LABS: Alanine Aminotransferase 9 units/L (7-56); Uric Acid 4.1 mg/dL (3.5-7.6)
--- NOTE | 2020-05-17 19:34 | History and Physical Report ---
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 Pt was seen earlier at [facility] and sent home. Pt continued to have headache and was seen both by me and then [facility] that recommended delivery with persistent headache, atypical preeclampsia. Pt admits to movement, earlier decreased and BPP 8/8 hence pt was sent home. Pt desired trial of labor with previous section x1, but she is not in labor currently and understands now she will not be induced with a previous scar. Pt denies leakage of fluid and not feeling ctx anymore and denies vaginal bleeding. Past History Past Surgical History: section Social history: no significant social history - Obstetrical History : 3 Para: 1 Hx # Term Pregnancies: 1 (c/section ) Spontaneous Abortions: 1 Number of Living Children: 1 Medications and Allergies Allergies Allergy/AdvReac Type Severity Reaction Status Date / Time shellfish derived Allergy Anaphylaxis Verified 12/26/17 16:57 Home Medications Medication Instructions Recorded Confirmed Last Taken Type Aspirin [Aspirin BABY CHEW TAB] 81 mg PO QDAY 05/16/20 05/16/20 05/15/20 History No.137/Iron/Folic Acd 1 each PO DAILY 05/16/20 05/16/20 05/15/20 History [[facility] Vitamins Tablet] labetaloL [Labetalol 100mg TAB] 100 mg PO BID 05/16/20 05/16/20 05/15/20 History Active Meds: Active Medications Lactated Ringer's (Lactated Ringers) 1,000 mls @ 2,250 mls/hr IV PREOP FRANCIE Stop: 05/18/20 18:27 Oxytocin/Sodium Chloride (Pitocin/Ns 30 Unit/500ml) 30 units in 500 mls @ 0 mls/hr IV TITR FRANCIE; Protocol Cefazolin Sodium (Ancef/Sterile Water 2 Gm/20 Ml) 2 gm in 20 mls @ 80 mls/hr IV PREOP NR; Protocol Stop: 05/17/20 23:59 Review of Systems All systems: negative (persistent headache not relieved with tylenol or fioricet and elevated concerning BP whenever she is at home inspite of labetalol meds) - Vital Signs Vital signs: Vital Signs Pulse Pulse Ox 93 H 100 05/17/20 17:41 05/17/20 17:41 Temp Pulse Resp BP Pulse Ox 98.6 F 90 142/87 99 05/17/20 18:33 05/17/20 19:24 05/17/20 17:43 05/17/20 19:24 - Physical Exam Breasts: Positive: deferred Cardiovascular: Regular rate Lungs: Positive: Normal air movement Genitourinary (Female): Positive: normal external genitalia Vulva: both: normal Vagina: Positive: normal moisture Uterus: Positive: enlarged (non-tender gravid) Deep Tendon Reflex Grade: Normal +2 - Obstetrical FHR: category 1 Uterine Contraction Monitor Mode: External Cervical Dilatation: 1 (per triage nurse) Uterine Contraction Pattern: Absent Results Result Diagrams: 05/17/20 18:15 05/17/20 18:15 Abnormal lab results 05/17/20 05/17/20 Range/Units 18:15 18:15 RDW 15.5 H (13.2-15.2) % [place]ite % (Auto) 8.3 H (0.0-7.3) % Creatinine 0.5 L (0.6-1.2) mg/dL Lactate Dehydrogenase 258 H (91-180) units/L All other labs normal. Assessment and Plan with gestational HTN with neurological features, preeclampsia to be delivered per [facility]. Pt with previous section x1 and not in labor. H/O Asthma stable; GBS +. Pt last dose of aspirin more than 3days ago. 1. Discussed at length that induction of labor is not recommended and station remains above -2 and previous section. Consents obtained and NICU and anesthesia notified 2. PIH labs done 3. NICU and Anesthesiologist notified 4. Continue asthma meds prn All questions encouraged and answered
[2020-05-17 21:10] VITALS: BP 147/79
--- NOTE | 2020-05-17 21:41 | Event Note ---
Date: 05/17/20 After pt was admitted she changed her mind and no longer wants to be delivered. pt counseled on the risks, benefits and alternatives of delivery with neurological symptoms and now pt states that she knows her body and will sign out AMA and will return if she needs her section. Partner of pt in the room present when I spoke at length with my patient and he had nothing to say. FHR remains category I and pt acontractile. Pt instructed to resume her labetalol and I offered steroids with late and increased chance that she will deliver . All questions encouraged and answered.
[2020-05-17] MEDS ORDERED: BETAMET ACET/BETAMET NA PH 6 MG/ML INJ 5 ML MDV IM SCH (22:00)
== END 2020-05-17 20:05 | disposition home or self-care (01) | DRG 833 ==
LOC: TRG 17:19 → APU 17:33 → TRG 17:49
PROVIDERS: ADMIT Obstetrics & Gynecology; ATTEND Obstetrics & Gynecology
DX: O11.3 Pre-existing hypertension with pre-eclampsia, third trimester (principal); Z79.899 Other long term (current) drug therapy; Z79.82 Long term (current) use of aspirin; J45.909 Unspecified asthma, uncomplicated; O99.513 Diseases of the respiratory system complicating pregnancy, third trimester; Z3A.36 36 weeks gestation of pregnancy; Z91.013 Allergy to seafood
CPT/HCPCS: 36415; 59025; 82565; 83615; 84450; 84460; 84550; 85025; 86592; 86850; 86900; 86901; 96360; 96372; G0378; J0702

== ENCOUNTER 2020-05-18 21:30 | Outpatient (CLI) | payer OTHER ==
[2020-05-18] MEDS ORDERED: BETAMET ACET/BETAMET NA PH 6 MG/ML INJ 5 ML MDV IM ONE (21:37)
[2020-05-18 21:45] VITALS: BP 134/80
== END 2020-05-18 21:50 | disposition home or self-care (01) ==
LOC: TRG 21:30 → APU 21:33 → TRG 21:50
PROVIDERS: ATTEND Obstetrics & Gynecology
DX: O47.03 False labor before 37 completed weeks of gestation, third trimester (principal); Z3A.37 37 weeks gestation of pregnancy
CPT/HCPCS: 96372; J0702

== ENCOUNTER 2020-05-21 17:43 | Outpatient (CLI) | payer OTHER ==
[2020-05-21 21:21] VITALS: BP 116/70
--- NOTE | 2020-05-21 22:09 | Ultrasound Report ---
ULTRASOUND OBSTETRIC LIMITED ULTRASOUND BIOPHYSICAL PROFILE INDICATION / CLINICAL INFORMATION: KAPIL. Clinical Gestational Age (GA) in weeks, days: 37 weeks 6 days TECHNIQUE: Transabdominal. COMPARISON: 05/15/2020 FINDINGS: BREATHING MOVEMENT = 2 GROSS BODY MOVEMENT = 2 TONE = 2 QUALITATIVE AMNIOTIC FLUID VOLUME = 2 TOTAL BIOPHYSICAL SCORE = 8/8 HEART RATE (beats per minute): 135 AMNIOTIC FLUID INDEX (cm) = 8.1 (normal = 7-24 cm) ADDITIONAL FINDINGS: None. IMPRESSION: 1. Biophysical Score = 8/8 2. Single viable IUP. Signer Name: Nica Lyle MD Signed: 05/21/2020 10:05 PM Workstation Name: [id number]
== END 2020-05-21 21:41 | disposition home or self-care (01) ==
LOC: TRG 17:43 → APU 17:57 → TRG 21:41
PROVIDERS: ATTEND Obstetrics & Gynecology
DX: Z34.03 Encounter for supervision of normal first pregnancy, third trimester (principal); Z3A.37 37 weeks gestation of pregnancy
CPT/HCPCS: 59025; 76815; 76819